=== PATIENT | male | born 1945 | race Caucasian/White ===

== ENCOUNTER 2017-04-23 10:47 | Outpatient (CLI) | payer MEDICARE, OTHER ==
[2015-12-20 15:37] VITALS: BP 163/82
--- NOTE | 2017-04-23 17:40 | Diagnostic Imaging Report ---
JARROD MAST [facility] [id number] [facility]ly [facility] [address] [id number] Report Submission Date: Apr 23, 2017 1:52:43 PM CDT Patient Study Name: ELAINE ARCHIBALD Date: Apr 23, 2017 11:00:41 AM CDT Modality Type: DX Gender: M Description: CHEST : 41 Institution: [facility] Physician: JARROD MAST Examination: PA and lateral chest. History: CXR, COUGH/ WHEEZING FOR ABOUT 2 MONTHS, MINIMAL SMOKING HX (Hx) Comparison exam: None provided. Findings: PA lateral chest demonstrate a normal cardiac and mediastinal silhouette. No focal infiltrate. No blunting of the costophrenic margins. Osseous structures are appropriate for age. Impression: No acute appearing pulmonary process. Electronically signed on Apr 23, 2017 1:52:43 PM CDT by: Lio ESCOBAR
== END 2017-04-23 13:26 ==
LOC: RAD 10:47
PROVIDERS: ATTEND Family Medicine
DX: R05 Cough (principal)
CPT/HCPCS: 71046

== ENCOUNTER 2017-05-19 11:55 | Outpatient (CLI) | payer MEDICARE, OTHER ==
[2015-12-20 15:37] VITALS: BP 163/82
== END 2017-05-19 11:56 ==
LOC: LAB 11:55
PROVIDERS: ATTEND Family Medicine
DX: N40.1 Benign prostatic hyperplasia with lower urinary tract symptoms (principal)
CPT/HCPCS: 36415; 84153

== ENCOUNTER 2017-12-28 10:03 | Outpatient (CLI) | payer MEDICARE, OTHER ==
[2015-12-20 15:37] VITALS: BP 163/82
[2017-12-28 10:26] LABS: BASOPHILS % 0.4 (0.0-1.5); EOSINOPHILS % 3.3 % (0.0-6.8); MONOCYTES % 7.8 % (0.0-11.0)
[2017-12-28 10:54] LABS: eGFR (Non-African) > 60
== END 2017-12-28 10:04 ==
LOC: LAB 10:03
PROVIDERS: ATTEND Family Medicine
DX: I10 Essential (primary) hypertension (principal); E03.9 Hypothyroidism, unspecified; C61 Malignant neoplasm of prostate; E78.00 Pure hypercholesterolemia, unspecified
CPT/HCPCS: 36415; 80053; 80061; 84153; 84443; 85025

== ENCOUNTER 2018-08-04 07:25 | Outpatient (CLI) | payer MEDICARE, OTHER ==
[2015-12-20 15:37] VITALS: BP 163/82
[2018-08-04 07:44] LABS: BASOPHILS % 0.6 % (0.0-1.5)
[2018-08-04 09:40] LABS: HDL 43 mg/dL (>40); eGFR (Non-African) > 60
== END 2018-08-04 07:27 ==
LOC: LAB 07:25
PROVIDERS: ATTEND Family Medicine
DX: I10 Essential (primary) hypertension (principal); E03.9 Hypothyroidism, unspecified; E78.5 Hyperlipidemia, unspecified; C61 Malignant neoplasm of prostate
CPT/HCPCS: 36415; 80053; 80061; 84153; 84443; 85025